=== PATIENT | male | born 1960 | race African-American/Black ===

== ENCOUNTER 2022-05-30 13:09 | Emergency (ER) | payer MEDICAID ==
[~2022-05-30] VITALS: Ht 193 cm; Wt 66.0 kg
[2022-05-30] MEDS ORDERED: LORAZEPAM 0.5MG TABLET PO ONE (13:30)
[2022-05-30] MEDS ORDERED: KETOROLAC 60MG/2ML VIAL IM ONE (13:30)
[2022-05-30] MEDS ORDERED: METH-653 MT (13:34)
[2022-05-30] MEDS ORDERED: IBUP-2029 MT (13:34)
[2022-05-30 13:55] VITALS: BP 120/66
== END 2022-05-30 14:15 | disposition home or self-care (01) ==
LOC: ER 13:09
DX: M43.6 Torticollis (principal); I10 Essential (primary) hypertension; Z98.890 Other specified postprocedural states; Z86.59 Personal history of other mental and behavioral disorders
CPT/HCPCS: 96372; 99283; J1885

== ENCOUNTER 2022-06-12 13:44 | Emergency (ER) | payer MEDICAID ==
[~2022-06-12] VITALS: Ht 193 cm; Wt 66.0 kg
[~2022-06-12 13:44] MED LIST: CYCL10TA21 MT; IBUP-2029 MT; METH-653 MT
[2022-06-12 14:00] VITALS: BP 104/84
== END 2022-06-12 20:00 | disposition left against medical advice (07) ==
LOC: ER 13:44
DX: Z53.21 Procedure and treatment not carried out due to patient leaving prior to being seen by health care provider (principal)